=== PATIENT | male | born 1950 | race Caucasian/White ===

== ENCOUNTER 2020-12-28 16:32 | Emergency (ER) | payer BC ==
[2020-12-28 16:46] VITALS: BP 136/82
[2020-12-28] MEDS ORDERED: cefTRIAXone 1 GM VIAL IM STA (16:56)
[2020-12-28] MEDS ORDERED: LIDOCAINE 1% 2 ML VIAL MC ONE (16:56)
--- NOTE | 2020-12-28 16:59 | ED Physician Documentation ---
History of Present Illness - Stated complaint Stated Complaint: CAT SCRATCH,SWELLING - Chief complaint Chief Complaint: Ext Problem - History obtained from History obtained from: Patient, Family - History of Present Illness Timing: Yesterday - Additonal information Additional information: 70-year-old male was scratched by a cat yesterday and developed some swelling and redness to the dorsum of his hand going up his forearm and this is progressed through the day. He has not had a fever he does not otherwise feel ill. 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 Review of Systems Constitutional: reports: Fatigue. denies: Fever, Chills Eyes: denies: Decreased vision Ears: denies: Ear pain Nose: denies: Congestion Throat: denies: Sore throat Cardiac: denies: Chest pain / pressure Respiratory: denies: Dyspnea, Cough GI: denies: Vomiting, Diarrhea : denies: Dysuria Musculoskeletal: reports: Extremity pain, Extremity swelling. denies: Neck pain, Back pain Neurologic: denies: Generalized weakness, Focal weakness, Numbness PD PAST MEDICAL HISTORY - Present Medications Home Medications: Ambulatory Orders Medication Instructions Recorded Confirmed Amox/Clav 875/125 [Augmentin] 1 each PO Q12H #20 tablet 12/28/20 PD ED PE NORMAL - Vitals Vital signs reviewed: Yes (hypertensive ) - General General: Alert and oriented X 3, No acute distress, Well developed/nourished - HEENT HEENT: Atraumatic, PERRL, EOMI - Respiratory Respiratory: No respiratory distress - Derm Derm: Normal color, Warm and dry, No rash - Extremities Extremities: Other (swelling redness and tenderness to the dorsum of the right hand extending up the forearm about midway with a lymphangitic streak. ) - Neuro Neuro: Alert and oriented X 3, vocational rehabilitation consultant 2-12 intact, No motor deficit, No sensory deficit, Normal speech Eye Opening: Spontaneous Motor: Obeys Commands Verbal: Oriented GCS Score: 15 - Psych Psych: Normal mood, Normal affect Results - Vitals Vitals: Vital Signs - 24 hr 12/28/20 16:43 Temperature 36.6 C Heart Rate 79 Respiratory 15 Rate Blood Pressure 136/82 H O2 Saturation 99 Oxygen O2 Source Room air PD MEDICAL DECISION MAKING - ED course Complexity details: considered differential, d/w patient, d/w family ED course: 70-year-old male with a cat scratch to his hand has cellulitis 24 hours after the scratch. He is administered Rocephin 1 g intramuscular and we will place him on some Augmentin. Departure - Departure Disposition: 01 Home, Self Care Clinical Impression: Cellulitis Qualifiers: Site of cellulitis: extremity Site of cellulitis of extremity: upper extremity Laterality: right Qualified Code(s): L03.113 - Cellulitis of right upper limb Instructions: ED Infec Skin Cellulitis Follow-Up: [facility] [Provider Group] Prescriptions: Amox/Clav 875/125 [Augmentin] 1 each PO Q12H #20 tablet Comments: Cellulitis resulting from a cat scratch can be a rapidly progressing infection and we are expecting this to improve with the treatment we are providing today. If you have progression of your symptoms despite the treatment we are giving return to the emergency department.
== END 2020-12-28 17:23 | disposition home or self-care (01) ==
LOC: ED 16:32
DX: L03.113 Cellulitis of right upper limb (principal); S60.511A Abrasion of right hand, initial encounter; W55.03XA Scratched by cat, initial encounter
CPT/HCPCS: 96372; 99283; 99284